=== PATIENT | male | born 1940 | race Caucasian/White ===

== ENCOUNTER 2016-10-03 17:47 | Emergency (ER) | payer MEDICARE, MEDICAID ==
[~2016-10-03] VITALS: Ht 165.1 cm; Wt 57.0 kg
[2016-10-03] MEDS ORDERED: ALPR0.5T96 PO (17:58)
[2016-10-03] MEDS ORDERED: ASPI-1035 PO (17:58)
[2016-10-03] MEDS ORDERED: SIMV20TA6 PO (17:58)
[2016-10-03] MEDS ORDERED: ATEN50TA PO (17:58)
[2016-10-03] MEDS ORDERED: DICL50TA7 PO (17:58)
[2016-10-03] MEDS ORDERED: MISO200T PO (17:58)
[2016-10-03] MEDS ORDERED: MORPHINE SULFATE 4 MG/ML CPJ (NOT FOR IM USE) IV STA (18:27)
[2016-10-03] MEDS ORDERED: ONDANSETRON HCL 4MG/2ML VIAL IV STA (18:27)
[2016-10-03 18:54] LABS: BASOPHILS % 0.4 % (0.0-2.0); EOSINOPHILS % 0.6 % (0.0-5.0); HEMATOCRIT. 36.7 % (42.0-52.0); HEMOGLOBIN. 12.4 g/dL (14.0-18.0); LYMPHOCYTES % 21.4 % (20.0-50.0); MEAN CORPUSCULAR HGB CONC 33.8 g/dL (31.0-37.0); MEAN CORPUSCULAR VOLUME 97.8 fL (80.0-94.0); MEAN PLATELET VOLUME 8.6 fl (7.4-10.4); NEUTROPHILS % 68.6 % (40.0-76.0); PLATELET 185 x1000/uL (130-400); RED BLOOD CELL COUNT 3.75 mill/uL (4.7-6.1); RED CELL DISTRIBUTION WIDTH 13.5 % (11.6-14.6); WHITE BLOOD COUNT 6.5 x1000/uL (4.5-11.0)
[2016-10-03 19:01] LABS: INR 1.1; PROTHROMBIN TIME 11.1 sec
[2016-10-03 19:04] LABS: ALANINE AMINOTRANSFERASE 16 IU/L (13-61); ALBUMIN 3.4 g/dL (3.4-5.0); ANION GAP 12; CALCIUM 8.9 mg/dL (8.5-10.1); CARBON DIOXIDE 27 mEq/L (21-32); CHLORIDE 103 mEq/L (98-107); INDEX HEMOLYSI 2 (1-3); INDEX ICTERIC 1 (1-4); INDEX LIPEMIC 1 (1-3); LIPASE 64 IU/L (73-393); UREA NITROGEN BLOOD 9 mg/dL (7-21); eGFR > 60 mL/min (>60)
[2016-10-03 19:08] LABS: NT PRO B-TYPE NATRIURETIC PEP 579 pg/mL (5-125); TROPONIN I < 0.02 ng/mL (0.00-0.04)
[2016-10-03 22:15] VITALS: BP 118/72
== END 2016-10-03 23:05 | disposition short-term general hospital (02) ==
LOC: ER 17:52
DX: S32.402A Unspecified fracture of left acetabulum, initial encounter for closed fracture (principal); D64.9 Anemia, unspecified; F41.9 Anxiety disorder, unspecified; E78.00 Pure hypercholesterolemia, unspecified; I10 Essential (primary) hypertension; Z96.643 Presence of artificial hip joint, bilateral; I25.10 Atherosclerotic heart disease of native coronary artery without angina pectoris; W19.XXXA Unspecified fall, initial encounter; Y93.89 Activity, other specified; Y92.89 Other specified places as the place of occurrence of the external cause; Y99.8 Other external cause status
CPT/HCPCS: 36415; 71010; 73502; 80053; 83690; 83880; 84484; 85025; 85610; 93005; 93970; 96374; 96375; 99285; J2270; J2405

== ENCOUNTER 2017-04-02 18:19 | Emergency (ER) | payer MEDICARE, MEDICAID ==
[~2017-04-02] VITALS: Ht 177.8 cm; Wt 64.0 kg
[~2017-04-02 18:19] MED LIST: ALPR0.5T PO; ASPI-1159 PO; ATEN50TA PO; DICL50TA7 PO; MISO200T PO; SIMV20TA6 PO
[2017-04-02 18:29] VITALS: BP 133/51
[2017-04-02] MEDS ORDERED: METH5TAB2 PO (18:35)
[2017-04-02] MEDS ORDERED: APRAZOLAM (18:35)
[2017-04-02] MEDS ORDERED: DULOXETINE HCL (18:35)
== END 2017-04-02 20:22 | disposition home or self-care (01) ==
LOC: ER 18:19
DX: T50.905A Adverse effect of unspecified drugs, medicaments and biological substances, initial encounter (principal); F41.8 Other specified anxiety disorders; Y92.098 Other place in other non-institutional residence as the place of occurrence of the external cause; Z76.0 Encounter for issue of repeat prescription; I10 Essential (primary) hypertension; E78.00 Pure hypercholesterolemia, unspecified; Z79.82 Long term (current) use of aspirin; Z79.899 Other long term (current) drug therapy
CPT/HCPCS: 99281

== ENCOUNTER 2020-12-25 20:23 | Emergency (ER) | payer MEDICARE, MEDICAID ==
[~2020-12-25] VITALS: Ht 170.2 cm; Wt 82.0 kg
[~2020-12-25 20:23] MED LIST changes: +APRAZOLAM; -ASPI-1159 PO; +ASPI-1497 PO; +DULOXETINE HCL; +METH5TAB2 PO; +SIMV-43 PO; -SIMV20TA6 PO
[2020-12-25 22:55] VITALS: BP 134/70
== END 2020-12-26 00:38 | disposition home or self-care (01) ==
LOC: ER 20:23
DX: T39.391A Poisoning by other nonsteroidal anti-inflammatory drugs [NSAID], accidental (unintentional), initial encounter (principal); F41.9 Anxiety disorder, unspecified; M19.90 Unspecified osteoarthritis, unspecified site; I10 Essential (primary) hypertension; E78.00 Pure hypercholesterolemia, unspecified; Z96.649 Presence of unspecified artificial hip joint; Z79.82 Long term (current) use of aspirin; Y92.018 Other place in single-family (private) house as the place of occurrence of the external cause
CPT/HCPCS: 99283

== ENCOUNTER 2025-05-12 05:26 | Emergency (ER) | payer MEDICARE, MEDICAID ==
[~2025-05-12] VITALS: Ht 172.7 cm; Wt 54.0 kg
[~2025-05-12 05:26] MED LIST changes: -ALPR0.5T PO; -APRAZOLAM; -ASPI-1497 PO; -DICL50TA7 PO; -DULOXETINE HCL; +METH-816 PO; -METH5TAB2 PO; -MISO200T PO
[2025-05-12 05:29] VITALS: O2SAT 98
[2025-05-12 07:44] VITALS: BP 130/88; PULSE 74; RESP 15; TEMP 36.4; O2SAT 98
[2025-05-12 07:47] LABS: BASOPHILS % 0.2 % (0.0-2.0); EOSINOPHILS % 1.3 % (0.0-5.0); HEMATOCRIT. 38.4 % (42.0-52.0); HEMOGLOBIN. 12.8 g/dL (14.0-18.0); LYMPHOCYTES % 22.5 % (20.0-50.0); MEAN PLATELET VOLUME 8.8 fl (7.4-10.4); MONOCYTES % 9.4 % (2.0-8.0); NEUTROPHILS % 66.6 % (40.0-76.0); PLATELET 119 x1000/uL (130-400); RED BLOOD CELL COUNT 3.75 mill/uL (4.7-6.1); RED CELL DISTRIBUTION WIDTH 14.2 % (11.6-14.6)
[2025-05-12 08:01] LABS: CREATININE 0.8 mg/dL (0.6-1.3); PROTEIN TOTAL 5.9 g/dL (6.0-8.3); UREA NITROGEN BLOOD 10 mg/dL (9-23)
[2025-05-12 08:02] LABS: ASPARTATE AMINOTRANSFERASE 32 IU/L (<34); TROPONIN I HIGH SENSITIVITY 7 ng/L (3.0-53)
[2025-05-12 08:03] LABS: BILIRUBIN TOTAL 0.6 mg/dL (0.1-1.0)
== END 2025-05-12 09:19 | disposition left against medical advice (07) ==
LOC: ER 05:26
DX: M62.838 Other muscle spasm (principal); E78.00 Pure hypercholesterolemia, unspecified; I10 Essential (primary) hypertension; M19.90 Unspecified osteoarthritis, unspecified site; Z96.649 Presence of unspecified artificial hip joint
CPT/HCPCS: 36415; 71045; 80053; 82550; 84484; 85025; 93005; 99285

== ENCOUNTER 2025-05-12 11:23 | Emergency (ER) | payer MEDICARE, MEDICAID ==
[~2025-05-12] VITALS: Ht 160 cm; Wt 50.0 kg
[2025-05-12 11:29] VITALS: O2SAT 98
[2025-05-12 13:56] VITALS: BP 128/82; PULSE 68; RESP 16; TEMP 36.7; O2SAT 99
== END 2025-05-12 13:57 | disposition home or self-care (01) ==
LOC: ER 11:23
DX: R62.7 Adult failure to thrive (principal); E78.00 Pure hypercholesterolemia, unspecified; I10 Essential (primary) hypertension; M19.90 Unspecified osteoarthritis, unspecified site; Z96.649 Presence of unspecified artificial hip joint
CPT/HCPCS: 99283